=== PATIENT | male | born 1950 | race Asian ===

== ENCOUNTER 2017-07-13 09:41 | Emergency (ER) | payer SELFPAY ==
[~2017-07-13] VITALS: Ht 165.1 cm; Wt 68.0 kg
[2017-07-13] MEDS ORDERED: SOD CHLORIDE 0.9% 500 ML IV STA (09:42)
[2017-07-13] MEDS ORDERED: IODIXANOL LOCM 100 ML BTL ONE (09:49)
[2017-07-13] MEDS ORDERED: SOD CHLORIDE 0.9% 100 ML ONE ×2 (09:49→10:40)
[2017-07-13 09:53] LABS: BASOPHIL # 0.1 10^3/ul (0.0-0.1); BASOPHILS % 0.5 % (0.0-2.0); EOSINOPHILS # 0.4 10^3/ul (0.0-0.5); EOSINOPHILS % 4.3 % (0.0-7.0); HEMATOCRIT 50.9 % (42.0-52.0); HEMOGLOBIN 18.2 g/dl (14.0-18.0); LYMPHOCYTES # 1.7 10^3/ul (0.8-2.9); LYMPHOCYTES % 18.8 % (15.0-51.0); MEAN CORPUSCULAR HEMOGLOBIN 32.6 pg (29.0-33.0); MEAN CORPUSCULAR HGB CONC 35.8 g/dl (32.0-37.0); MEAN CORPUSCULAR VOLUME 91.1 fl (82.0-101.0); MEAN PLATELET VOLUME 9.9 fl (7.4-10.4); MONOCYTE # 0.5 10^3/ul (0.3-0.9); MONOCYTES % 5.2 % (0.0-11.0); NEUTROPHIL # 6.5 10^3/ul (1.6-7.5); NEUTROPHILS % 70.9 % (39.0-77.0); PLATELET COUNT 197 10^3/UL (140-415); RED BLOOD COUNT 5.59 10^6/ul (4.70-6.10); RED CELL DISTRIBUTION WIDTH 12.6 % (11.5-14.5); WHITE BLOOD COUNT 9.1 10^3/ul (4.8-10.8)
[2017-07-13] MEDS ORDERED: METOCLOPRAMIDE 10 MG INJ ONE (09:56)
--- NOTE | 2017-07-13 09:56 | RADRPT ---
PROCEDURE: CT brain without contrast CLINICAL INDICATION: Code stroke, neurologic deficit TECHNIQUE: CT of the brain without contrast performed on a multidetector CT scanner, with multiplan ar reformats. One or more of the following dose reduction techniques were used: Automated exposure control, adjustment in mA and / or kV according to patient size, use of iterative reconstructive mj hnique. CTDIvol = 43 mGy; DLP = 833 mGy-cm. DICOM images are available. COMPARISON: None available FINDINGS: No acute intracranial hemorrhage is identified. No extra-axial fluid collection is seen. There is no mass effect. No midline shift is identified. The ventricles and sulci are mildly enlarged compatible with volume loss. There are mild areas of hypodensity in the periventricular - deep white matter which are nonspecific but suggestive of chronic small vessel ischemic changes. Deluca-white differentiation appears preser amarilis. Atherosclerotic calcifications of the intracranial internal carotid arteries are noted. Calvarium and skull base are intact. Partial maxillary, ethmoid and left frontal sinus opacificatio n are noted. IMPRESSION: 1. No acute intracranial pathology identified. 2. Mild volume loss, with mild chronic small vessel ischemic changes. Results called to Dr. Salas at 07/13/2017 09:54 a.m.. RPTAT: VV .Nam Edward MD, Date Time Electronically viewed and signed by .Nam Edward MD, MD on 07/13/2017 09:55 .O/
[2017-07-13] MEDS ORDERED: LABETALOL HCL 20MG INJ ONE (10:00)
[2017-07-13] MEDS ORDERED: LABETALOL HCL 20MG INJ IV ONE ×2 (10:00→12:00)
--- NOTE | 2017-07-13 10:00 | RADRPT ---
PROCEDURE: XR Chest. CLINICAL INDICATION: Stroke TECHNIQUE: A single AP view of the chest was obtained. COMPARISON: None. FINDINGS: No focal airspace opacification, pleural effusion or pneumothorax is seen. The cardiomediastinal si lhouette is mildly enlarged. Calcifications are seen within the aortic arch. The osseous structures demonstrate senescent changes. IMPRESSION: 1. No radiographic evidence of acute cardiopulmonary disease. 2. Mild cardiomegaly and aortic atherosclerosis. RPTAT: HH .Clari Hazel MD, Date Time Electronically viewed and signed by .Clari Hazel MD, on 07/13/2017 09:59 .G/
[2017-07-13 10:08] VITALS: Ht 165.1 cm; Wt 68.0 kg
[2017-07-13 10:15] LABS: ANION GAP 17 (8-16); BLOOD UREA NITROGEN 15 mg/dl (7-20); CALCIUM 9.2 mg/dl (8.4-10.2); CARBON DIOXIDE 28 mmol/L (21-31); CHLORIDE 101 mmol/L (97-110); CREATININE 0.84 mg/dl (0.61-1.24); GLUCOSE 144 mg/dl (70-220); POTASSIUM 3.7 mmol/L (3.5-5.1); SODIUM 142 mmol/L (135-144)
--- NOTE | 2017-07-13 10:25 | STROKE ---
Date/Time of Note Date/Time of Note DATE: 07/13/17 TIME: 10:18 Patient Information General Patient location: emergency Arrival Date Age 67 Gender male Weight 0 g Vital Signs Vital Signs Vital Signs Date Time Temp Pulse Resp B/P Pulse Ox O2 Delivery O2 Flow Rate FiO2 07/13/17 10:11 88 17 147/106 100 Room Air 07/13/17 10:08 98.3 Labs Hematology Labs Hematology Test 07/13/17 09:45 White Blood Count 9.110^3/ul (4.8-10.8) Red Blood Count 5.5910^6/ul (4.70-6.10) Hemoglobin 18.2g/dl (14.0-18.0) Hematocrit 50.9% (42.0-52.0) Mean Corpuscular Volume 91.1fl (82.0-101.0) Mean Corpuscular Hemoglobin 32.6pg (29.0-33.0) Mean Corpuscular Hemoglobin Concent 35.8g/dl (32.0-37.0) Red Cell Distribution Width 12.6% (11.5-14.5) Platelet Count 07783^3/UL (140-415) Mean Platelet Volume 9.9fl (7.4-10.4) Neutrophils % 70.9% (39.0-77.0) Lymphocytes % 18.8% (15.0-51.0) Monocytes % 5.2% (0.0-11.0) Eosinophils % 4.3% (0.0-7.0) Basophils % 0.5% (0.0-2.0) Nucleated Red Blood Cells % 0.0/100WBC (0.0-0.0) Neutrophils # 6.510^3/ul (1.6-7.5) Lymphocytes # 1.710^3/ul (0.8-2.9) Monocytes # 0.510^3/ul (0.3-0.9) Eosinophils # 0.410^3/ul (0.0-0.5) Basophils # 0.110^3/ul (0.0-0.1) Nucleated Red Blood Cells # 0.010^3/ul (0.0-0.0) History & Physical History of Present Illness 67yo M presents with acute onset dizzyness, imbalance, and slurred speech. Patient reports his symptoms began at 8:40am as he was getting out of the shower. Review of Systems Constitutional: no symptoms reported EENTM: no symptoms reported Respiratory: no symptoms reported Cardiovascular: no symptoms reported Gastrointestinal: no symptoms reported Genitourinary: no symptoms reported Musculoskeletal: no symptoms reported Skin: no symptoms reported Psychiatric/Neurological: no symptoms reported All Other Systems: Reviewed and Negative NIH Stroke Scale NIH Stroke Scale Dysarthria: 1 - Mild to moderateTotal Score: 1 Date/Time Recorded DATE: 07/13/17 TIME: 10:18 Submitted By Saroj Paul t-PA Imaging Review Date/Time Imaging Reviewed DATE: 07/13/17 TIME: :18 Inclusion/Exclusion Criteria CT Head- no acute changes t-PA Administration Recommendation: No Weight 0 g Recommedation submitted by Saroj Paul Reason t-PA not Recommended symptoms resolving t-PA Not Recommended Date/Time 07/13/17 10:07 Recommendations Impression Diagnosis ischemic stroke Recommendation 67yo M presents with acute onset slurred speech, dizzyness, and imbalance. Neurological exam is notable for mild slurred speech. I believe the patient is having an acute ischemic stroke. I reviewed the risks and benefits of IV TPA in detail with the patient and he agrees with my recommendation against IV TPA as his symptoms are mild and improving. I recommend a stat CTA of the head and neck to evaluate for occlusion in the posterior circulation. I recommend further workup include MRI Brain without gadolinium. After imaging is completed , consider restarting patient's anticoagulation. I have requested a call back after CTA is completed. Diagnostic Labs: Lipid Proile Hgb A1C CMP CBC w/Diff Coags Therapy: Physical Therapy Speech Therapy Occupational Therapy Misc. Recommendations: Bedside Swallow Evaluation Pnumatic Compression Devices Avoid De La Cruz Catheter Stroke Education Smoking Education SAROJ PAUL Jul 13, 2017 10:24
[2017-07-13] MEDS ORDERED: ONDANSETRON 4 MG INJ ONE (10:28)
[2017-07-13 10:29] LABS: TROPONIN-I < 0.012 ng/ml (0.00-0.12)
[2017-07-13] MEDS ORDERED: ONDANSETRON 4 MG INJ IV STA (10:29)
[2017-07-13] MEDS ORDERED: METOCLOPRAMIDE 10 MG INJ IV ONE (10:30)
[2017-07-13] MEDS ORDERED: IOHEXOL 350MG/ML 50 ML BTL ONE (10:40)
[2017-07-13] MEDS ORDERED: IOHEXOL 100 ML ONE (10:40)
[2017-07-13 10:47] LABS: INR 0.99; PROTIME 13.2 Sec (11.9-14.9)
[2017-07-13 10:48] LABS: PARTIAL THROMBOPLASTIN TIME 29.2 Sec (25.0-35.0)
[2017-07-13] MEDS ORDERED: ISM20 PO (11:26)
[2017-07-13] MEDS ORDERED: CARV3.1260 PO (11:27)
[2017-07-13] MEDS ORDERED: NIFE30TA60 PO (11:27)
--- NOTE | 2017-07-13 11:27 | RADRPT ---
PROCEDURE: CTA head and neck CLINICAL INDICATION: Code stroke TECHNIQUE: The study was performed utilizing a multi-slice multidetector CT scanner. Direct thin s ection helical 0.625 mm axial sections were obtained through the head and neck after the uneventful administration of 115 cc of Omnipaque 350 nonionic intravenous contrast material. Coronal and sagit cruz as well as maximal intensity projection reformations were obtained. 3-D images were made. The i mages were reviewed on a PACS workstation. The total CTDIvol is 24.75, and 14.98 mGy and the DLP is 644.59 mGy-cm. DICOM images are available. One or more of the following dose reduction techniques were used: Automated exposure control. Adjustment of the mA and/or kV according to patient size. Use of iterative reconstruction technique. COMPARISON: No prior studies are available for comparison. FINDINGS: CTA NECK: Scattered calcific plaques are seen in the thoracic arch and at the proximal aspect of th e great vessels of the thoracic arch with no significant stenosis. The common carotid arteries are normal in appearance without significant atherosclerotic plaque or stenosis. There is a fibrofatty p laque with punctate eccentric focal calcifications at the right carotid bulb and proximal ICA result ing in less than 30% stenosis. There is mild fibrocalcific plaque at the left carotid bulb and proxi mal ICA with less than 25% stenosis. There is a right dominant vertebral basilar arterial system. Th ere is occlusion of the left vertebral artery at the V3 segment and proximal V4 segments. There is a small calcific plaque at the origin of the right vertebral artery with no significant stenosis. The re is mild emphysema in the lung apices. CTA BRAIN: There is no intracranial arterial thrombus or major vessel occlusion. Multifocal intracra nial arterial stenoses are present including approximately 50% stenosis of the left supraclinoid ICA , less than 50% stenosis of the distal left M1 segment and P2 segment of the right LEGAL EXECUTIVE ASSISTANT. There is a f etal right LEGAL EXECUTIVE ASSISTANT. Bilateral anterior cerebral arteries are patent and normal in caliber. There is occl usion of the proximal aspect of the intracranial left vertebral artery. Left distal vertebral artery and left PICA opacified likely through retrograde flow. Critical findings were discussed with Reta Bey on 07/13/2017 at 11:15 AM. IMPRESSION: 1. Occlusion of the distal extracranial left vertebral artery and proximal aspect of the intracrania l left vertebral artery. Distal intracranial left vertebral artery and left PICA opacified likely th rough retrograde flow. 2. Multifocal mild to moderate intracranial arterial stenoses are evident at the left supraclinoid ICA, distal M1 segment of left MCA and right LEGAL EXECUTIVE ASSISTANT. 3. Mild atherosclerotic changes at the carotid bulbs and proximal ICA with no hemodynamically signi ficant stenosis. NASCET CAROTID STENOSIS CRITERIA (distal normal appearing ICA as denominator for measurement): 0%-no ne, 1-49%-mild, 50-70%-moderate, 70-89%-severe, 90-99%-critical. RPTAT: BB .Aisha Storm MD, MD Date Time Electronically viewed and signed by .Aisha Storm MD, on 07/13/2017 11:27 .O/
--- NOTE | 2017-07-13 11:28 | RADRPT ---
PROCEDURE: CTA head and neck CLINICAL INDICATION: Code stroke TECHNIQUE: The study was performed utilizing a multi-slice multidetector CT scanner. Direct thin sec tion helical 0.625 mm axial sections were obtained through the head and neck after the uneventful ad ministration of 115 cc of Omnipaque 350 nonionic intravenous contrast material. Coronal and sagittal as well as maximal intensity projection reformations were obtained. 3-D images were made. The image s were reviewed on a PACS workstation. The total CTDIvol is 24.75, and 14.98 mGy and the DLP is 644. 59 mGy-cm. DICOM images are available. One or more of the following dose reduction techniques were used: Automated exposure control. Adjustment of the mA and/or kV according to patient size. Use of iterative reconstruction technique. COMPARISON: No prior studies are available for comparison. FINDINGS: CTA NECK: Scattered calcific plaques are seen in the thoracic arch and at the proximal aspect of the great vessels of the thoracic arch with no significant stenosis. The common carotid arteries are no rmal in appearance without significant atherosclerotic plaque or stenosis. There is a fibrofatty lorri que with punctate eccentric focal calcifications at the right carotid bulb and proximal ICA resultin g in less than 30% stenosis. There is mild fibrocalcific plaque at the left carotid bulb and proxima l ICA with less than 25% stenosis. There is a right dominant vertebral basilar arterial system. Ther e is occlusion of the left vertebral artery at the V3 segment and proximal V4 segments. There is a s mall calcific plaque at the origin of the right vertebral artery with no significant stenosis. There is mild emphysema in the lung apices. CTA BRAIN: There is no intracranial arterial thrombus or major vessel occlusion. Multifocal intracra nial arterial stenoses are present including approximately 50% stenosis of the left supraclinoid ICA , less than 50% stenosis of the distal left M1 segment and P2 segment of the right PREDICTIVE MAINTENANCE TECHNICIAN. There is a f etal right PREDICTIVE MAINTENANCE TECHNICIAN. Bilateral anterior cerebral arteries are patent and normal in caliber. There is occl usion of the proximal aspect of the intracranial left vertebral artery. Left distal vertebral artery and left PICA opacified likely through retrograde flow. Critical findings were discussed with Reta Bey on 07/13/2017 at 11:15 AM. IMPRESSION: 1. Occlusion of the distal extracranial left vertebral artery and proximal aspect of the intracrania l left vertebral artery. Distal intracranial left vertebral artery and left PICA opacified likely th rough retrograde flow. 2. Multifocal mild to moderate intracranial arterial stenoses are evident at the left supraclinoid I CA, distal M1 segment of left MCA and right PREDICTIVE MAINTENANCE TECHNICIAN. 3. Mild atherosclerotic changes at the carotid bulbs and proximal ICA with no hemodynamically signif icant stenosis. NASCET CAROTID STENOSIS CRITERIA (distal normal appearing ICA as denominator for measurement): 0%-no ne, 1-49%-mild, 50-70%-moderate, 70-89%-severe, 90-99%-critical. RPTAT: BB .Aisha Storm MD, Date Time Electronically viewed and signed by .Aisha Storm MD, on 07/13/2017 11:28 .O/
[2017-07-13] MEDS ORDERED: ALTEPLASE (tPA) 1 MG/ML BOLUS SYG IV* ONE ×2 (11:30→12:00)
[2017-07-13] MEDS ORDERED: ALTEPLASE 100 MG INJ IV* ONE ×2 (11:30→12:00)
[2017-07-13] MEDS ORDERED: SOD CHLORIDE 0.9% 50 ML IV ONE (11:30)
[2017-07-13 11:34] VITALS: BP 170/96; PULSE 95; RESP 20
[2017-07-13 11:43] LABS: ADD UMIC YES; UR ASCORBIC ACID NEGATIVE (NEGATIVE); UR BILIRUBIN (Dip) NEGATIVE (NEGATIVE); UR BLOOD (Dip) NEGATIVE (NEGATIVE); UR CLARITY CLEAR (CLEAR); UR COLOR YELLOW (YELLOW); UR GLUCOSE (Dip) 1+ mg/dL (NEGATIVE); UR KETONES (Dip) NEGATIVE (NEGATIVE); UR LEUKOCYTE ESTERASE (Dip) NEGATIVE Leu/ul (NEGATIVE); UR NITRITE (Dip) NEGATIVE (NEGATIVE); UR RBC 1 /HPF (0-5); UR SPECIFIC GRAVITY (Dip) 1.029 (1.003-1.030); UR TOTAL PROTEIN (Dip) 2+ mg/dl (NEGATIVE); UR UROBILINOGEN (Dip) NEGATIVE (NEGATIVE)
[2017-07-13] MEDS ORDERED: niCARdipine-NS 0.1MG/ML DRIP 200 ML IV SCH (12:00)
[2017-07-13 12:01] LABS: BARBITURATES Negative (NEGATIVE); BENZODIAZEPINES Negative (NEGATIVE); CANNABINOIDS Negative (NEGATIVE); COCAINE Negative (NEGATIVE); OPIATES Negative (NEGATIVE)
--- NOTE | 2017-07-13 17:44 | ERD ---
ER Documentation Chief Complaint Chief Complaint pt julia form home for slurred speech and weakenss since 0840 today. HPI 67-year-old male with a history of atrial fibrillation not on anticoagulation and, hypertension brought into the ER for acute onset dizziness with nausea, vomiting, and slurred speech. The patient's last known well was today. He was reportedly showering when suddenly he felt dizzy. When he came out of the shower, his family noticed he had some slurred speech. The patient noticed this as well. He also complained of some dizziness with nausea and had multiple episodes of vomiting in route. He was given Zofran with minimal relief of his symptoms. Currently he denies any vision disturbance, headache, focal weakness or numbness. He was noted to be ataxic by EMS. Patient states that he has been off of his blood thinners which he cannot recall the name of, for several months as he ran out of his medications and never refilled them. ROS All systems reviewed and are negative except as per history of present illness. Medications Home Meds Reported Medications Carvedilol* (Carvedilol*) Unknown Strength Tablet, PO BID, #60 TAB 07/13/17 Nifedipine* (Nifedipine ER*) Unknown Strength Tablet.sa, PO DAILY, TAB.SA 07/13/17 Isosorbide Mononitrate* (Isosorbide Mononitrate*) Unknown Strength Tablet, PO DAILY, TAB 07/13/17 Allergies Allergies: Coded Allergies: No Known Allergy (Unverified , 07/13/17) PMhx/Soc Hx Cardiac Disorders: Yes (htn, a-fib) Hx Alcohol Use: No Hx Substance Use: No Hx Tobacco Use: No Smoking Status: Never smoker FmHx Family History: No diabetes Physical Exam Vitals Vital Signs Date Time Temp Pulse Resp B/P Pulse Ox O2 Delivery O2 Flow Rate FiO2 07/13/17 12:20 93 18 172/113 95 07/13/17 12:05 92 18 186/136 96 07/13/17 11:58 94 17 175/99 98 07/13/17 11:55 94 18 168/102 07/13/17 11:34 95 20 170/96 100 Room Air 07/13/17 10:37 87 21 153/99 96 Room Air 07/13/17 10:24 90 20 164/94 95 Room Air 07/13/17 10:11 88 17 147/106 100 Room Air 07/13/17 10:08 98.3 116 18 188/127 100 Physical Exam const: well developed, well nourished, In mild distress secondary to nausea. Head: Atraumatic Eyes: Normal Conjunctiva, PERRLA, EOMI, no nystagmus ENT: Normal External Ears, Nose and Mouth. Neck: Full range of motion..~ No meningismus. No JVD Resp: Clear to auscultation bilaterally Cardio: Irregularly irregular rhythm, no murmurs Abd: Soft, non tender, non distended. Normal bowel sounds Skin: No petechiae or rashes Back: No midline or flank tenderness Ext: No cyanosis, or edema Neur: Awake and alert. Oriented 3, mild slurred speech. Cranial nerves intact, strength and sensations intact in all 4 extremities. Unsteady gait. No pronator drift. Psych: Normal Mood and Affect Result Diagram: 07/13/17 0945 07/13/17 0945 Results 24 hrs Laboratory Tests Test 07/13/17 09:45 07/13/17 11:20 White Blood Count 9.110^3/ul Red Blood Count 5.5910^6/ul Hemoglobin 18.2g/dl Hematocrit 50.9% Mean Corpuscular Volume 91.1fl Mean Corpuscular Hemoglobin 32.6pg Mean Corpuscular Hemoglobin Concent 35.8g/dl Red Cell Distribution Width 12.6% Platelet Count 81057^3/UL Mean Platelet Volume 9.9fl Neutrophils % 70.9% Lymphocytes % 18.8% Monocytes % 5.2% Eosinophils % 4.3% Basophils % 0.5% Nucleated Red Blood Cells % 0.0/100WBC Neutrophils # 6.510^3/ul Lymphocytes # 1.710^3/ul Monocytes # 0.510^3/ul Eosinophils # 0.410^3/ul Basophils # 0.110^3/ul Nucleated Red Blood Cells # 0.010^3/ul Prothrombin Time 13.2Sec Prothrombin Time Ratio 1.0 INR International Normalized Ratio 0.99 Activated Partial Thromboplast Time 29.2Sec Sodium Level 142mmol/L Potassium Level 3.7mmol/L Chloride Level 101mmol/L Carbon Dioxide Level 28mmol/L Anion Gap 17 Blood Urea Nitrogen 15mg/dl Creatinine 0.84mg/dl Glucose Level 144mg/dl Hemoglobin A1c 5.2% Calcium Level 9.2mg/dl Troponin I < 0.012ng/ml Urine Color YELLOW Urine Clarity CLEAR Urine pH 7.0 Urine Specific Huggins 1.029 Urine Ketones NEGATIVEmg/dL Urine Nitrite NEGATIVEmg/dL Urine Bilirubin NEGATIVEmg/dL Urine Urobilinogen NEGATIVEmg/dL Urine Leukocyte Esterase NEGATIVELeu/ul Urine Microscopic RBC 1/HPF Urine Microscopic WBC 2/HPF Urine Hemoglobin NEGATIVEmg/dL Urine Glucose 1+mg/dL Urine Total Protein 2+mg/dl Urine Opiates Screen Negative Urine Barbiturates Negative Urine Amphetamines Screen Negative Urine Benzodiazepines Screen Negative Urine Cocaine Screen Negative Urine Cannabinoids Negative Current Medications Medications (Trade) Dose Ordered Sig/Armando Route PRN Reason Start Time Stop Time Status Last Admin Dose Admin Sodium Chloride 500 ml @ 500 mls/hr Q1H STAT IV 07/13/17 09:42 07/13/17 10:41 DC 07/13/17 10:07 Sodium Chloride (NS) 100 ml @ ud STK-MED ONCE .ROUTE 07/13/17 09:49 07/13/17 09:50 DC Iodixanol (Visipaque Locm) 100 ml STK-MED ONCE .ROUTE 07/13/17 09:49 07/13/17 09:50 DC Metoclopramide HCl (Reglan) 10 mg STK-MED ONCE .ROUTE 07/13/17 09:56 07/13/17 09:57 DC Labetalol HCl (Labetalol) 20 mg ONCE ONCE IV 07/13/17 10:00 07/13/17 10:01 DC 07/13/17 10:03 Labetalol HCl (Labetalol) 20 mg STK-MED ONCE .ROUTE 07/13/17 10:00 07/13/17 10:01 DC Metoclopramide HCl (Reglan) 10 mg ONCE ONCE IV 07/13/17 10:30 07/13/17 10:31 DC 07/13/17 10:31 Ondansetron HCl (Zofran Inj) 4 mg STK-MED ONCE .ROUTE 07/13/17 10:28 07/13/17 10:29 DC Ondansetron HCl 4 mg 4 mg ONCE STAT IV 07/13/17 10:29 07/13/17 10:34 DC 07/13/17 10:35 Sodium Chloride 100 ml @ ud STK-MED ONCE .ROUTE 07/13/17 10:40 07/13/17 10:41 DC Iohexol (Omnipaque) 100 ml @ ud STK-MED ONCE .ROUTE 07/13/17 10:40 07/13/17 10:41 DC Iohexol (Omnipaque 350mg/ ml) 50 ml STK-MED ONCE .ROUTE 07/13/17 10:40 07/13/17 10:41 DC Alteplase, Recombinant (Activase) 6.5 mg BOLUS OVER 1 MIN ONCE IV* 07/13/17 11:30 07/13/17 11:31 DC Alteplase, Recombinant 58.9 mg 58.9 mg ISCHEMIC STROKE ONCE IV* 07/13/17 11:30 07/13/17 11:31 DC Sodium Chloride 50 ml @ 0 mls/hr FLUSH AFTER TPA ONCE IV 07/13/17 11:30 07/13/17 11:31 DC Nicardipine HCl (Cardene Iv) 200 ml @ 50 mls/hr TITRATE IV 07/13/17 12:00 07/13/17 14:29 DC 07/13/17 12:10 Alteplase, Recombinant (Activase) 6.12 mg BOLUS OVER 1 MIN ONCE IV* 07/13/17 12:00 07/13/17 12:01 DC 07/13/17 11:57 Alteplase, Recombinant (Activase) 55 mg ISCHEMIC STROKE ONCE IV* 07/13/17 12:00 07/13/17 12:01 DC 07/13/17 11:58 Labetalol HCl (Labetalol) 10 mg ONCE ONCE IV 07/13/17 12:00 07/13/17 12:01 DC 07/13/17 11:52 Procedures/MDM EMERGENT LABS AND DIAGNOSTIC STUDIES: Lab Results above were reviewed and interpreted by me. CBC: Elevated hemoglobin, otherwise normal CMP: No evidence of electrolyte abnormality, renal failure, hypoglycemia, liver failure, or biliary obstruction Troponin within normal limits UA: no evidence of infection 12-lead EKG was interpreted by Jason Salas MD: Atrial fibrillation with RVR at 101 bpm Normal axis Normal intervals No acute ST or T wave changes suggestive of acute ischemia or STEMI. Radiology Results as interpreted by Radiology below were reviewed by Joey Salas MD: Chest x-ray showed no acute abnormalities CT head showed no acute abnormalities CTA brain/neck: Left extracranial and proximal vertebral artery occlusion Initial Nursing notes reviewed. Previous Medical Records requested via the Electronic Health Record. EMERGENCY DEPARTMENT COURSE / MEDICAL DECISION MAKING: Upon presentation, the patient had strokelike symptoms concerning for posterior circulation stroke given his dysarthria, Dizziness, and ataxia. His blood pressure was noted to be significantly elevated upon arrival. He was treated with IV fluids and IV emetics initially. After my evaluation, I immediately activated a code stroke and ordered a CT head and CTA of the brain and neck. I spoke with Dr. Paul, the tele-neurologist on-call, who recommended just getting the CT head to rule out acute bleed and requested to evaluate the patient prior to CTA. The patient arrived back in the ED and was immediately evaluated by the tele-neurologist. Per her evaluation, his symptoms and findings were very mild on exam. She recommended doing the CTA prior to considering TPA. I received a phone call by the radiologist consumer credit counselor around 11:15 AM, notifying me of the left vertebral basilar artery occlusion. He noted that the patient did have collateral circulation from the right side though. I called the tele- neurologist and discussed these findings with her. She recommended administering TPA, which was ordered at 11:19 AM. The patient's blood pressure was noted to be elevated, for which she received labetalol 20 mg IV initially. He required another 10 mg IV prior to TPA administration and he was placed on a nicardipine drip. I [place] Lazcano at 11:27 AM, [place] [facility] [place] for [place] after TPA administration. The patient was transferred for higher level of care for possible endovascular intervention. Neuro Critical Care: Critical Care Time: 55 minutes Treatments/Evaluations: Continuous neurologic and cardiovascular monitoring for deterioration of neurologic function and complications, while obtaining immediate neurologic imaging. Considerations made for TPA and invasive therapy with discussions with family. This time does not include any separately billable procedures noted elsewhere in the note. Accepting Care Team: Current data and ongoing care discussed. Time: Time of admission Primary Provider: [place] [facility] [place]: Dr. Paul (teleneurology) Outstanding Data: none Departure Diagnosis: Primary Impression: Vertebral artery occlusion Laterality: left Qualified Code: I65.02 - Occlusion of left vertebral artery Additional Impressions: Ataxia Vertigo Nausea and vomiting Vomiting type: unspecified Vomiting Intractability: non-intractable Qualified Code: R11.2 - Non-intractable vomiting with nausea, unspecified vomiting type Posterior circulation stroke Condition: Critical RIK SALAS MD Jul 13, 2017 17:43
== END 2017-07-13 14:29 | disposition short-term general hospital (02) ==
LOC: E/R 09:41
DX: I65.02 Occlusion and stenosis of left vertebral artery (principal); R27.0 Ataxia, unspecified; R11.2 Nausea with vomiting, unspecified; I63.331 Cerebral infarction due to thrombosis of right posterior cerebral artery; I10 Essential (primary) hypertension; R40.2142 Coma scale, eyes open, spontaneous, at arrival to emergency department; R40.2252 Coma scale, best verbal response, oriented, at arrival to emergency department; R40.2362 Coma scale, best motor response, obeys commands, at arrival to emergency department
CPT/HCPCS: 36415; 37195; 70450; 70496; 70498; 71010; 80048; 80307; 81001; 83036; 84484; 85025; 85610; 85730; 93005; 96374; 96375; 96376; 99291; J2405; J2765; J2997; J7040; Q9967